=== PATIENT | male | born 1965 | race Caucasian/White ===

== ENCOUNTER 2020-05-27 15:59 | Inpatient (IN) | payer MEDICAID, OTHER ==
[~2020-05-27] VITALS: Ht 175.3 cm; Wt 70.5 kg
[2020-05-27] MEDS ORDERED: ACETAMINOPHEN 325MG TABLET PO STA (17:32)
[2020-05-27 19:19] LABS: BASOPHILS % 0.1 % (0.0-2.0); EOSINOPHILS % 0.1 % (0.0-5.0); HEMATOCRIT. 38.8 % (42.0-52.0); LYMPHOCYTES % 10.2 % (20.0-50.0); MEAN CORPUSCULAR HEMOGLOBIN 31.6 pg (28.0-32.0); MEAN CORPUSCULAR VOLUME 94.6 fL (80.0-94.0); MEAN PLATELET VOLUME 7.2 fl (7.4-10.4); NEUTROPHILS % 79.6 % (40.0-76.0); PLATELET 189 x1000/uL (130-400); RED CELL DISTRIBUTION WIDTH 13.3 % (11.6-14.6)
[2020-05-27 19:27] LABS: C REACTIVE PROTEIN QUANT 6.6 mg/L (0.0-3.0)
[2020-05-27] MEDS ORDERED: CEFTRIAXONE SODIUM 1 G/VIAL IM ONE (22:15)
[2020-05-27] MEDS ORDERED: CLONIDINE 0.1MG TABLET PO PRN (22:15)
[2020-05-27] MEDS ORDERED: ONDANSETRON HCL 4MG/2ML INJ IV PRN (22:15)
[2020-05-27] MEDS ORDERED: ACETAMINOPHEN 325MG TABLET PO PRN ×2 (22:15)
[2020-05-27] MEDS ORDERED: ALBUTEROL 6.7GM HFA INHALER ORI PRN (22:15)
[2020-05-27] MEDS ORDERED: IPRATROPIUM/ALBUTEROL 0.5-3(2.5)MG/3ML NEB NEB PRN (22:15)
[2020-05-27] MEDS ORDERED: ZOLPIDEM TARTRATE 5MG TABLET PO PRN (22:15)
[2020-05-27] MEDS ORDERED: MAGNESIUM/ALUMINUM HYDROXIDE/SIMETHICONE 30ML UDC PO PRN (22:15)
[2020-05-27] MEDS ORDERED: NITROGLYCERIN 0.4MG TABLET SL SL PRN (22:15)
[2020-05-27] MEDS ORDERED: DOCUSATE SODIUM 100MG CAPSULE PO PRN (22:15)
[2020-05-27] MEDS ORDERED: GUAIFENESIN 200MG/10ML SUGAR FREE UDC PO PRN (22:15)
[2020-05-27 22:53] LABS: CHLORIDE 95 mEq/L (98-107)
[2020-05-27 22:59] LABS: TOTAL IRON BINDING CAPACITY 207 ug/dL (250-450)
[2020-05-27 23:02] LABS: LDL CHOLESTEROL 39 mg/dL (5-100)
[2020-05-27 23:03] LABS: HDL CHOLESTEROL 30 mg/dL (40-59)
[2020-05-27 23:13] LABS: FOLIC ACID (FOLATE) SERUM 3.6 ng/mL (>5.38)
[2020-05-27] MEDS ORDERED: ENOXAPARIN 40MG/0.4ML SYR SUBCUT NR (23:50)
[2020-05-28] MEDS: CEFTRIAXONE 1 G PREMIX 50 ML IV SCH ×2 (00:13→23:00)
[2020-05-28] MEDS: GUAIFENESIN/DM 600MG/30MG ER TAB 12HR PO SCH ×3 (00:13→21:00)
[2020-05-28] MEDS: AZITHROMYCIN 500 MG in DEXT 5% WATER 250 ML IV SCH ×2 (01:07→23:00)
[2020-05-28 04:07] LABS: CLARITY URINE CLEAR (CLEAR); COLOR URINE YELLOW (YELLOW); KETONES URINE NEGATIVE (NEGATIVE); LEUKOCYTE ESTERASE URINE NEGATIVE (NEGATIVE); NITRITE URINE NEGATIVE (NEGATIVE); OCCULT BLOOD URINE NEGATIVE (NEGATIVE); PROTEIN URINE NEGATIVE (NEGATIVE); SPECIFIC GRAVITY URINE 1.005 (1.005-1.030); UROBILINOGEN URINE 0.2 E.U./dL (0.2-1.0)
[2020-05-28 04:33] LABS: *AMPHETAMINES SCREEN URINE NEGATIVE (NEGATIVE); *BARBITURATES SCREEN URINE NEGATIVE (NEGATIVE); *BENZODIAZEPINES SCREEN URINE NEGATIVE (NEGATIVE)
[2020-05-28 04:34] LABS: *COCAINE SCREEN URINE NEGATIVE (NEGATIVE); CANNABINOID URINE SCREEN NEGATIVE (NEGATIVE); METHADONE URINE SCREEN NEGATIVE (NEGATIVE); OPIATES URINE SCREEN NEGATIVE (NEGATIVE); PHENCYCLIDINE URINE SCREEN NEGATIVE (NEGATIVE)
[2020-05-28] MEDS: CARVEDILOL 3.125 MG TABLET PO SCH ×2 (06:19→18:00)
[2020-05-28] MEDS: ASCORBIC ACID 500 MG TABLET PO SCH ×2 (09:00→21:00)
[2020-05-28] MEDS: ZINC SULFATE 220 MG ( 50 ) CAPSULE PO SCH (09:00)
[2020-05-28] MEDS: FAMOTIDINE 20MG TABLET PO SCH ×2 (09:00→21:00)
[2020-05-28] MEDS: CYANOCOBALAMIN 1000MCG/ML VIAL IM SCH (09:15)
[2020-05-28] MEDS ORDERED: MVI, ADULT NO.1 10 ML, FOLIC ACID 1 MG, THIAMINE HCL 100 MG in SODIUM CHLORIDE 0.9% 1,0... IV SCH ×4 (10:00)
[2020-05-28 10:49] LABS: HEMATOCRIT. 37.3 % (42.0-52.0); HEMOGLOBIN. 12.7 g/dL (14.0-18.0); MEAN CORPUSCULAR VOLUME 93.9 fL (80.0-94.0); MEAN PLATELET VOLUME 7.4 fl (7.4-10.4); PLATELET 198 x1000/uL (130-400); RED BLOOD CELL COUNT 3.98 mill/uL (4.7-6.1); RED CELL DISTRIBUTION WIDTH 13.4 % (11.6-14.6)
[2020-05-28 10:54] LABS: CHLORIDE 100 mEq/L (98-107)
[2020-05-28 11:00] LABS: PHOSPHORUS 2.6 mg/dL (2.5-4.9)
[2020-05-28] MEDS: ALBUTEROL 6.7GM HFA INHALER ORI SCH (11:00)
[2020-05-28 11:03] LABS: CREATINE KINASE 56 IU/L (39-308)
[2020-05-28 11:34] LABS: PLATELET ESTIMATE NORMAL
[2020-05-28] MEDS: ENOXAPARIN 40MG/0.4ML SYR SUBCUT SCH (21:00)
[2020-05-28] MEDS ORDERED: MAGNESIUM 2 G PREMIX 50 ML IV NR (22:30)
[2020-05-29] MEDS: CARVEDILOL 3.125 MG TABLET PO SCH ×2 (11:00→22:54)
[2020-05-29] MEDS: ASCORBIC ACID 500 MG TABLET PO SCH ×2 (12:15→22:53)
[2020-05-29] MEDS: ZINC SULFATE 220 MG ( 50 ) CAPSULE PO SCH (12:15)
[2020-05-29] MEDS: FAMOTIDINE 20MG TABLET PO SCH ×2 (12:16→22:53)
[2020-05-29] MEDS: GUAIFENESIN/DM 600MG/30MG ER TAB 12HR PO SCH ×2 (12:16→22:53)
[2020-05-29 20:36] LABS: CHLORIDE 103 mEq/L (98-107)
[2020-05-29] MEDS: ENOXAPARIN 40MG/0.4ML SYR SUBCUT SCH (22:53)
[2020-05-29] MEDS: CYANOCOBALAMIN 1000MCG/ML VIAL IM SCH (22:54)
[2020-05-29] MEDS ORDERED: AZITHROMYCIN 500 MG in SODIUM CHLORIDE 0.9% 250 ML IV SCH (23:01)
[2020-05-29] MEDS: TACROLIMUS 0.5 MG CAPSULE PO SCH (23:06)
[2020-05-29] MEDS: MYCOPHENOLATE MOFETIL 500MG TABLET PO SCH (23:07)
[2020-05-30 01:50] VITALS: BP 145/89
[2020-05-30] MEDS ORDERED: METO-396 PO (02:10)
[2020-05-30] MEDS ORDERED: NAPR-681 MT (02:10)
[2020-05-30] MEDS ORDERED: TACR0.5C4 MT (02:10)
[2020-05-30] MEDS ORDERED: ZINC50TA69 PO (02:10)
[2020-05-30] MEDS ORDERED: ASPI-1158 PO (02:10)
[2020-05-30] MEDS ORDERED: MYCO500T MT (02:10)
[2020-05-30] MEDS ORDERED: PRED10TA MT (02:10)
[2020-05-30] MEDS ORDERED: TACR0.5C4 PO (02:10)
[2020-05-30] MEDS ORDERED: CHOL40002 PO (02:10)
[2020-05-30] MEDS ORDERED: IBUP-1653 MT (02:12)
[2020-05-30] MEDS: CEFTRIAXONE 1,000 MG in DEXTROSE 5% WATER 50 ML IV SCH ×2 (05:47→21:12)
[2020-05-30] MEDS: AZITHROMYCIN 500 MG in SODIUM CHLORIDE 0.9% 250 ML IV SCH (06:38)
[2020-05-30] MEDS: TACROLIMUS 0.5 MG CAPSULE PO SCH ×2 (07:07→17:02)
[2020-05-30] MEDS: CARVEDILOL 3.125 MG TABLET PO SCH ×2 (07:07→17:02)
[2020-05-30] MEDS: ASCORBIC ACID 500 MG TABLET PO SCH ×2 (08:50→21:19)
[2020-05-30] MEDS: CYANOCOBALAMIN 1000MCG/ML VIAL IM SCH (08:50)
[2020-05-30] MEDS: GUAIFENESIN/DM 600MG/30MG ER TAB 12HR PO SCH ×2 (08:50→21:00)
[2020-05-30] MEDS: ZINC SULFATE 220 MG ( 50 ) CAPSULE PO SCH (08:50)
[2020-05-30] MEDS: FAMOTIDINE 20MG TABLET PO SCH ×2 (08:50→21:12)
[2020-05-30] MEDS: MYCOPHENOLATE MOFETIL 500MG TABLET PO SCH ×2 (08:50→21:19)
[2020-05-30 12:00] VITALS: BP 139/98
[2020-05-30 16:00] VITALS: BP 142/89
[2020-05-30 20:00] VITALS: BP 126/78
[2020-05-30] MEDS: ALBUTEROL 6.7GM HFA INHALER ORI SCH (21:00)
[2020-05-30] MEDS: ENOXAPARIN 40MG/0.4ML SYR SUBCUT SCH (21:11)
[2020-05-31] VITALS: BP 122/68
[2020-05-31] MEDS: AZITHROMYCIN 500 MG in SODIUM CHLORIDE 0.9% 250 ML IV SCH ×2
[2020-05-31] MEDS: ALBUTEROL 6.7GM HFA INHALER ORI SCH ×3 (03:11→13:52)
[2020-05-31 04:00] VITALS: BP 134/78
[2020-05-31] MEDS: CARVEDILOL 3.125 MG TABLET PO SCH ×2 (05:59→17:00)
[2020-05-31] MEDS: TACROLIMUS 0.5 MG CAPSULE PO SCH ×2 (06:00→17:02)
[2020-05-31 08:00] VITALS: BP 138/86
[2020-05-31] MEDS: MYCOPHENOLATE MOFETIL 500MG TABLET PO SCH (08:05)
[2020-05-31] MEDS: CYANOCOBALAMIN 1000MCG/ML VIAL IM SCH (08:05)
[2020-05-31] MEDS: GUAIFENESIN/DM 600MG/30MG ER TAB 12HR PO SCH (08:05)
[2020-05-31] MEDS: ZINC SULFATE 220 MG ( 50 ) CAPSULE PO SCH (08:05)
[2020-05-31] MEDS: FAMOTIDINE 20MG TABLET PO SCH (08:05)
[2020-05-31] MEDS: ASCORBIC ACID 500 MG TABLET PO SCH (08:05)
[2020-05-31 11:34] VITALS: BP 135/70
[2020-05-31 12:00] VITALS: BP 136/78
[2020-05-31 16:00] VITALS: BP 130/76
[2020-05-31] MEDS ORDERED: AZITHROMYCIN 500 MG in DEXT 5% WATER 250 ML IV SCH (18:00)
== END 2020-05-31 17:40 | disposition home or self-care (01) | DRG 177 ==
LOC: ER 15:59 → MICUSO 22:05 → EDBEDREQTM 22:09 → EDBEDREQ 22:09 → SUPCPDRO 22:43 → 7WST 05-29 22:53
PROVIDERS: ADMIT Internal Medicine; ATTEND Internal Medicine
DX: U07.1 COVID-19 (principal); J96.00 Acute respiratory failure, unspecified whether with hypoxia or hypercapnia; J12.82 Pneumonia due to coronavirus disease 2019; I50.32 Chronic diastolic (congestive) heart failure; E87.1 Hypo-osmolality and hyponatremia; I13.0 Hypertensive heart and chronic kidney disease with heart failure and stage 1 through stage 4 chronic kidney disease, or unspecified chronic kidney disease; Z94.0 Kidney transplant status; E83.42 Hypomagnesemia; E53.8 Deficiency of other specified B group vitamins; Z60.2 Problems related to living alone; J84.112 Idiopathic pulmonary fibrosis; N18.9 Chronic kidney disease, unspecified
CPT/HCPCS: 36415; 71045; 80048; 80061; 80076; 82607; 82728; 82746; 83036; 83540; 83550; 83605; 83615; 84145; 84484; 85025; 86140; 87635; 93005; 93970; 99285; J0456; J0696; J1650; J3411; J3420; J3475; J3490; J7030; J7050; J7060; J7507; J7517

== ENCOUNTER 2021-12-08 18:52 | Emergency (ER) | payer OTHER ==
[~2021-12-08] VITALS: Ht 170.2 cm; Wt 64.0 kg
[~2021-12-08 18:52] MED LIST: ASPI-1406 PO; CHOL40002 PO; IBUP-1653 MT; METO-396 PO; MYCO500T MT; NAPR-681 MT; PRED10TA MT; TACR0.5C4 MT; TACR0.5C4 PO; ZINC50TA69 PO
[2021-12-09 00:35] LABS: BASOPHILS % 0.3 % (0.0-2.0); EOSINOPHILS % 0.2 % (0.0-5.0); HEMATOCRIT. 41.3 % (42.0-52.0); HEMOGLOBIN. 13.7 g/dL (14.0-18.0); LYMPHOCYTES % 15.5 % (20.0-50.0); MEAN CORPUSCULAR HEMOGLOBIN 30.7 pg (28.0-32.0); MEAN CORPUSCULAR VOLUME 92.6 fL (80.0-94.0); MEAN PLATELET VOLUME 7.7 fl (7.4-10.4); PLATELET 173 x1000/uL (130-400); RED BLOOD CELL COUNT 4.46 mill/uL (4.7-6.1); RED CELL DISTRIBUTION WIDTH 13.6 % (11.6-14.6)
[2021-12-09 00:44] LABS: CHLORIDE 108 mEq/L (98-107)
[2021-12-09 00:51] LABS: CLARITY URINE CLEAR (CLEAR); COLOR URINE YELLOW (YELLOW); KETONES URINE NEGATIVE (NEGATIVE); LEUKOCYTE ESTERASE URINE TRACE (NEGATIVE); NITRITE URINE NEGATIVE (NEGATIVE); OCCULT BLOOD URINE NEGATIVE (NEGATIVE); PH URINE 5.5 (4.5-8.0); PROTEIN URINE NEGATIVE (NEGATIVE); SPECIFIC GRAVITY URINE 1.015 (1.005-1.030); UROBILINOGEN URINE 0.2 E.U./dL (0.2-1.0)
[2021-12-09] MEDS ORDERED: CEPH500C2 MT (04:40)
[2021-12-09] MEDS ORDERED: IBUP-2029 MT (04:40)
[2021-12-09 05:37] VITALS: BP 145/78
== END 2021-12-09 05:37 | disposition home or self-care (01) ==
LOC: ER 18:52
DX: N12 Tubulo-interstitial nephritis, not specified as acute or chronic (principal); I10 Essential (primary) hypertension; Z79.899 Other long term (current) drug therapy; Z88.1 Allergy status to other antibiotic agents; Z98.890 Other specified postprocedural states
CPT/HCPCS: 71045; 74176; 80053; 81001; 85025; 99285

== ENCOUNTER 2023-07-19 14:55 | Emergency (ER) | payer OTHER ==
[~2023-07-19] VITALS: Ht 170.2 cm; Wt 66.0 kg
[~2023-07-19 14:55] MED LIST changes: +CEPH500C2 MT; +IBUP-2029 MT
[2023-07-19 15:02] VITALS: O2SAT 97
[2023-07-19 16:24] LABS: BASOPHILS % 0.8 % (0.0-2.0); EOSINOPHILS % 0.4 % (0.0-5.0); HEMATOCRIT. 40.4 % (42.0-52.0); HEMOGLOBIN. 13.8 g/dL (14.0-18.0); MEAN CORPUSCULAR HEMOGLOBIN 31.8 pg (28.0-32.0); MEAN CORPUSCULAR HGB CONC 34.1 g/dL (31.0-37.0); MEAN CORPUSCULAR VOLUME 93.5 fL (80.0-94.0); MONOCYTES % 14.1 % (2.0-8.0); NEUTROPHILS % 59.7 % (40.0-76.0); PLATELET 183 x1000/uL (130-400); RED BLOOD CELL COUNT 4.32 mill/uL (4.7-6.1); RED CELL DISTRIBUTION WIDTH 13.4 % (11.6-14.6); WHITE BLOOD COUNT 2.9 x1000/uL (4.5-11.0)
[2023-07-19 16:50] LABS: ALANINE AMINOTRANSFERASE 28 IU/L (10-49); ALBUMIN 4.3 g/dL (3.2-4.8); ASPARTATE AMINOTRANSFERASE 24 IU/L (<34); BILIRUBIN TOTAL 0.9 mg/dL (0.1-1.0); CALCIUM 10.1 mg/dL (8.7-10.4); CARBON DIOXIDE 26 mEq/L (21-32); CHLORIDE 103 mEq/L (98-107); CREATININE 0.8 mg/dL (0.6-1.3); GLUCOSE 93 mg/dL (70-105); POTASSIUM 4.2 mEq/L (3.5-5.1); PROTEIN TOTAL 6.4 g/dL (6.0-8.3); SODIUM 135 mEq/L (136-145); UREA NITROGEN BLOOD 7 mg/dL (9-23)
[2023-07-19 17:29] LABS: TROPONIN I HIGH SENSITIVITY 4 ng/L (3.0-53)
[2023-07-19 20:13] VITALS: BP 142/82; PULSE 81; RESP 16; TEMP 98.4
== END 2023-07-19 20:14 | disposition home or self-care (01) ==
LOC: ER 14:55
DX: R07.89 Other chest pain (principal); I12.0 Hypertensive chronic kidney disease with stage 5 chronic kidney disease or end stage renal disease; N18.6 End stage renal disease; Z99.2 Dependence on renal dialysis; Z79.899 Other long term (current) drug therapy
CPT/HCPCS: 36415; 71045; 80053; 84484; 85025; 93005; 99285

== ENCOUNTER 2023-09-26 18:02 | Emergency (ER) | payer OTHER ==
[~2023-09-26] VITALS: Ht 170.2 cm; Wt 140.0 kg
[2023-09-26 18:21] VITALS: O2SAT 100
[2023-09-26 19:11] LABS: BASOPHILS % 0.4 % (0.0-2.0); EOSINOPHILS % 0.7 % (0.0-5.0); HEMATOCRIT. 40.6 % (42.0-52.0); HEMOGLOBIN. 14.3 g/dL (14.0-18.0); LYMPHOCYTES % 13.1 % (20.0-50.0); MEAN CORPUSCULAR HEMOGLOBIN 32.6 pg (28.0-32.0); MEAN CORPUSCULAR HGB CONC 35.2 g/dL (31.0-37.0); MEAN CORPUSCULAR VOLUME 92.4 fL (80.0-94.0); MEAN PLATELET VOLUME 7.3 fl (7.4-10.4); MONOCYTES % 10.1 % (2.0-8.0); NEUTROPHILS % 75.7 % (40.0-76.0); PLATELET 182 x1000/uL (130-400); RED CELL DISTRIBUTION WIDTH 13.2 % (11.6-14.6); WHITE BLOOD COUNT 5.2 x1000/uL (4.5-11.0)
[2023-09-26] MEDS: ASPIRIN 81MG TABLET PO ONE (19:11)
[2023-09-26] MEDS: NITROGLYCERIN 0.4MG TABLET SL SL PRN (19:12)
[2023-09-26 19:22] LABS: D-DIMER 0.28 mg/L FEU (<0.50); INR 1.1; PARTIAL THROMBOPLASTIN TIME 29.8 sec (23.4-31.0); PROTHROMBIN TIME 11.7 sec (9.6-11.0)
[2023-09-26 19:24] LABS: CHLORIDE 96 mEq/L (98-107); SODIUM 125 mEq/L (136-145)
[2023-09-26 19:26] LABS: CALCIUM 10.5 mg/dL (8.7-10.4); CARBON DIOXIDE 22 mEq/L (21-32)
[2023-09-26 19:31] LABS: CREATININE 0.8 mg/dL (0.6-1.3); GLUCOSE 103 mg/dL (70-105)
[2023-09-26 19:33] LABS: ALANINE AMINOTRANSFERASE 29 IU/L (10-49); ALBUMIN 4.7 g/dL (3.2-4.8); ASPARTATE AMINOTRANSFERASE 29 IU/L (<34); BILIRUBIN DIRECT 0.4 mg/dL (<=3.0); BILIRUBIN TOTAL 0.8 mg/dL (0.1-1.0); PROTEIN TOTAL 6.5 g/dL (6.0-8.3); TROPONIN I HIGH SENSITIVITY 5 ng/L (3.0-53); UREA NITROGEN BLOOD < 5 mg/dL (9-23)
[2023-09-26 22:30] VITALS: BP 138/88; PULSE 56; RESP 12; TEMP 98.3
== END 2023-09-26 22:53 | disposition short-term general hospital (02) ==
LOC: ER 18:02 → EDBEDREQ 20:48 → EDBEDREQTM 20:48 → ER 22:53 → CANBEDREQ 09-28 21:08
DX: R07.89 Other chest pain (principal); I10 Essential (primary) hypertension; Z99.2 Dependence on renal dialysis
CPT/HCPCS: 80076; 80048; 85025; 85379; 85610; 85730; 84484; 36415; 71045; 99285; Z7610 ×3